=== PATIENT | female | born 1945 | race Caucasian/White ===

== ENCOUNTER 2022-01-14 16:32 | Emergency (ER) | payer MEDICARE, SELFPAY ==
--- NOTE | ~2022-01-14 | XR_ITS ---
EXAMINATION: XR chest 2V Exam Date/Time: 01/14/2022 17:01 CDT HISTORY: MIDSTENAL CP/EPIGASTRIC PAIN, SOB, WEAKNESS X 2 HOURS Comparison: 04/28/2013. RESULT: Lines, tubes, and devices: None. Lungs and pleura: Emphysematous and senescent change. Biapical pleural scarring. Cardiomediastinal silhouette: Stable. Other: No acute osseous or upper abdominal finding. IMPRESSION: No acute cardiopulmonary process. Reviewed, dictated and finalized at location K.
--- NOTE | 2022-01-14 16:34 | ECG_ITS ---
Measurements Intervals [place] Rate: 81 P: 73 DE: 168 QRS: -48 QRSD: 77 T: 1 QT: 349 QTc: 406 Interpretive Statements SINUS RHYTHM ANTEROSEPTAL MYOCARDIAL INFARCTION , OF INDETERMINATE AGE [40+ ms Q WAVE IN V1-V4] MODERATE T-WAVE ABNORMALITY, CONSIDER LATERAL ISCHEMIA [-0.1+ mV T WAVE IN I/aVL/V5/V6] NO PREVIOUS ECG AVAILABLE FOR COMPARISON Electronically Signed On 01-15-2022 17:09:44 CDT by Slade Short M.D.
[2022-01-14 17:19] VITALS: BP 117/67; PULSE 84; RESP 16; TEMP 36.1; O2SAT 98
[2022-01-14 17:43] LABS: Basophils Percent Auto 0.7 % (0.2-1.2); Eosinophils Absolute Auto 0.2 K/mm3 (0-0.3); Eosinophils Percent Auto 3.3 % (0-4.4); Immature Granulocyte Absolute 0.01 K/mm3 (0.00-0.031); Immature Granulocyte Percent A 0.2 % (0-0.5); Lymphocytes Absolute Auto 1.06 K/mm3 (0.9-3.2); Lymphocytes Percent Auto 23.2 % (18.3-44.2); Mean Corpuscular HGB Conc 32.5 g/dl (32-36); Mean Corpuscular Hemoglobin 29.7 pg (26-34); Mean Corpuscular Volume 91.3 fl (80-100); Monocytes Absolute Auto 0.4 K/mm3 (0.1-0.6); Monocytes Percent Auto 9.4 % (2.6-8.5); Neutrophils Absolute Auto 2.9 K/mm3 (1.3-6.7); Neutrophils Percent Auto 63.2 % (45.5-73.1); Platelet Count Result 231 k/mm3 (150-375); Red Blood Count 4.38 M/mm3 (4.2-5.4); Red Cell Distribution Width 13.8 % (11.5-14.5); White Blood Count 4.6 K/mm3 (4.5-10.0)
[2022-01-14 17:54] LABS: Prothrombin Time 12.9 Seconds (11.1-14.7)
[2022-01-14 17:57] LABS: Alanine Aminotransferase 41 U/L (6-35); Albumin Level 4.3 g/dL (3.5-5.1); Alkaline Phosphatase 131 U/L (38-126); Anion Gap 15 mmol/L (8-16); Aspartate Amino Transferase 98 U/L (14-36); Bilirubin,Total 0.2 mg/dL (0.2-1.3); Blood Urea Nitrogen 25 mg/dL (7-17); Calcium 9.2 mg/dL (8.4-10.2); Carbon Dioxide 25 mmol/L (22-30); Chloride 105 mmol/L (98-107); Estimated CRCL calculation 58 ml/min; Estimated Glomerular Filt Rate > 60; Glucose 115 mg/dL (65-110); Lipase 113 U/L (23-300); Potassium 3.7 mmol/L (3.4-5.0); Sodium 145 mmol/L (137-145)
[2022-01-14 18:08] LABS: Troponin I < 0.012 ng/mL (0.000-0.034)
--- NOTE | 2022-01-14 19:11 | PC.NURSE ---
IV removed per Sarina METZ. Pt leaving ED at this time after being Triaged but prior to being seen by provider.
== END 2022-01-14 19:11 | disposition left against medical advice (07) ==
PROVIDERS: Emergency Provider Emergency Medicine; PCP Internal Medicine
DX: R07.9 Chest pain, unspecified (principal)
CPT/HCPCS: 36415; 71046; 80053; 83690; 84484; 85025; 85610; 85730; 93005; 99199

== ENCOUNTER 2024-05-01 21:57 | Observation (INO) | payer MEDICARE, SELFPAY ==
--- NOTE | ~2024-05-01 | XR_ITS ---
HISTORY: injury post fall COMPARISON: None TECHNIQUE: 2 views of the left shoulder were performed FINDINGS: Acute comminuted fracture of the left humeral head is identified. Overlap of the fracture fragments is present. The adjacent left lung is unremarkable. Diffuse bony demineralization is noted. IMPRESSION: Comminuted fracture of the left humeral head, as detailed above without anterior dislocation. Reviewed, dictated and finalized at location A. L SOCIAL WORKER IMPRESSION: Comminuted fracture of the left humeral head, as detailed above without anterio r dislocation.
--- NOTE | ~2024-05-01 | XR_ITS ---
EXAMINATION: XR wrist LT 2V DATE: 05/02/2024 08:09 INDICATION: Left wrist pain. Fall. TECHNIQUE: 2 views of left wrist were obtained. COMPARISON: None. FINDINGS: Alignment is normal. No fracture. There is moderate osteoarthritis of radioscaphoid joint a nd mild osteoarthritis of triscaphe joint and first carpometacarpal joint. IMPRESSION: 1. Polyarticular osteoarthritis. Reviewed, dictated and finalized at location B. IDE SALES MANAGER
--- NOTE | ~2024-05-01 | CT_ITS ---
EXAMINATION: CT brain wo con DATE: 05/02/2024 07:57 INDICATION: Fall. Neck pain. TECHNIQUE: Computed tomography (CT) of the head was performed without intravenous contrast. The mA wa s adjusted according to patient size. Iterative reconstruction technique was employed. The dose-lengt h product was 605.33 mGy-cm. COMPARISON: Head CT 01/03/2011 FINDINGS: There is no intracranial hemorrhage, acute infarction, or abnormal intracranial mass lesion . The ventricles are normal in size. There are likely changes of right ocular lens replacement surger y. There is mild mucosal thickening in the paranasal sinuses. The mastoid air cells are normal. IMPRESSION: 1. Normal brain. Reviewed, dictated and finalized at location B. D DESIGN ENGINEER IMPRESSION: 1. Normal brain.
--- NOTE | ~2024-05-01 | CT_ITS ---
EXAMINATION: CT cervical spine wo con DATE: 05/02/2024 07:57 INDICATION: Neck pain. Fall. TECHNIQUE: Computed tomography (CT) of the cervical spine was performed without intravenous contrast. Automated exposure control and iterative reconstruction technique were employed. The dose-length pro duct was 119.39 mGy-cm. COMPARISON: None FINDINGS: There is kyphosis of cervical spine. Vertebral body heights are normal. There is mildly dec reased disc height at C3-C4 and severely decreased disc height from C4-C5 through C6-C7. The followin g disc levels are specifically discussed: C2-C3: There is no uncovertebral joint osteoarthritis. There is moderate right and mild left facet jeannette int osteoarthritis. There is no neural foraminal stenosis. There is no central canal stenosis. C3-C4: There is mild bilateral uncovertebral joint osteoarthritis. There is severe right facet joint osteoarthritis. There is mild right neural foraminal stenosis. There is no central canal stenosis. C4-C5: There is severe bilateral uncovertebral joint osteoarthritis. There is severe bilateral facet joint osteoarthritis. There is mild bilateral neural foraminal stenosis. There is mild central canal stenosis. C5-C6: There is severe bilateral uncovertebral joint osteoarthritis. There is mild bilateral facet jeannette int osteoarthritis. There is mild bilateral neural foraminal stenosis. There is mild central canal st enosis. C6-C7: There is severe bilateral uncovertebral joint osteoarthritis. There is moderate bilateral face t joint osteoarthritis. There is mild bilateral neural foraminal stenosis. There is mild central davie l stenosis. C7-T1: There is no uncovertebral joint osteoarthritis. There is mild bilateral facet joint osteoarthr itis. There is no neural foraminal stenosis. There is no central canal stenosis. IMPRESSION: 1. No fracture. 2. Severe cervical spondylosis. Reviewed, dictated and finalized at location B. ED RICE BROKER
[2024-05-01 22:05] VITALS: BP 155/80; PULSE 80; RESP 18; TEMP 36.3; O2SAT 100
[2024-05-01] MEDS: MORPHINE SULFATE (*CRX) 4 MG/ML INJ IV PUSH (23:07)
[2024-05-01] MEDS: ONDANSETRON INJ 4 MG/2 ML VIAL IV PUSH (23:07)
[2024-05-01 23:19] VITALS: BP 138/72; PULSE 82; RESP 14; O2SAT 100
--- NOTE | 2024-05-01 23:45 | ED.FALL ---
HPI - Fall General Chief Complaint: Fall Stated Complaint: fall, L shoulder injury Time Seen by Provider: 05/01/24 23:08 History of Present Illness HPI Narrative: Patient is a 78-year-old female who presents to the emergency department this evening status post a ground level fall which occurred at home. Patient states that she tripped over something and fell hitting her left shoulder on the AC unit. Patient states that she did not hit her head and did not lose any consciousness. Since the fall she has not been able to move her left. Denies any numbness and tingling to the left upper extremity. Denies any blood thinner use. No additional symptoms or concerns at this time. Related Data Allergies Allergy/AdvReac Type Severity Reaction Status Date / Time Penicillins Allergy Mild Unknown Verified 05/01/24 21:58 ONIONS, GARLIC, MILK CAUSES Allergy Unknown Unknown Uncoded 05/01/24 21:58 UPSET STOMACH Review of Systems Review of Systems: All systems are reviewed and are negative unless stated otherwise in the HPI. Exam Narrative: General: Alert, awake, afebrile, acute distress secondary to pain. HEENT: PERRL, no rhinorrhea, no post nasal drip, oropharynx clear. Neck: Trachea midline, no JVD, no lymphadenopathy. Cardiovascular: Regular rate and rhythm, no murmurs, rubs or gallops, no peripheral edema. Respiratory: Clear to auscultation bilaterally, no tachypnea, no wheezing, no rhonchi, no rubs, no respiratory distress. Abdomen: Soft, nontender, nondistended, no rebound, no guarding, no peritoneal signs. Musculoskeletal: Left upper extremity held in adduction at the shoulder joint and 90 degree elbow flexion, sling in place, intact radial, ulnar pulses, intact sensation in all nerve distributions including deltoid region. Skin: No rashes or petechia, no signs of infection. Psychiatric: Alert and oriented, normal behavior and judgment for situation. Neurological: Alert and oriented to person, place, and time. Follows all commands. No focal deficits, speech is clear and fluent. Course Vital Signs Vital signs: Vital Signs Temperature 97.4 F L 05/01/24 22:05 Pulse Rate 80 05/01/24 22:05 Respiratory Rate 18 05/01/24 22:05 Blood Pressure 155/80 H 05/01/24 22:05 Pulse Oximetry 100 05/01/24 22:05 Oxygen Delivery Room Air 05/01/24 22:05 Temperature 97.4 F L 05/01/24 22:05 Pulse Rate 82 05/01/24 23:19 Respiratory Rate 14 05/01/24 23:19 Blood Pressure 138/72 05/01/24 23:19 Pulse Oximetry 100 05/01/24 23:19 Oxygen Delivery Room Air 05/01/24 22:05 MDM - Fall MDM Narrative Medical decision making narrative: The patient was evaluated by myself in the emergency department. History is obtained from patient who is an independent historian and physical exam was performed. External medical records were reviewed at this time. IV was established and pertinent tests were ordered. Patient was administered 4 mg of IV Zofran for nausea and 4 mg of IV morphine for pain. Imaging studies obtained included left shoulder x-ray which was independently interpreted by me revealing a comminuted left humeral head fracture, nondisplaced, which is pending final radiology interpretation. Differential diagnosis considerations include fractures, dislocations, musculoskeletal strain. Comorbidities impacting this visit include none. I have evaluated and discussed social determinants of health with the patient that could potentially impact subsequent diagnosis and treatment plans. On repeat assessment of the patient, reevaluation revealed that the patient is doing well and is in no acute distress. Patient symptoms have improved since she arrived to our emergency department. Patient states that she does not feel as though she can go home and that she is having difficulty ambulating and does not believe that she can care for herself at home. Repeat vital signs were all reviewed and noted to be stable. Differential diagnosis and treatment plan were discussed with the patient at bedside. Patient agrees with discussion and after shared medical decision making agrees with admission. All questions were answered to the patient's satisfaction. Case was discussed with the on-call hospitalist Dr. Dennison at 0010 who accepted admission for pain control. Orthopedic consultation was placed at this time with Dr. Frausto. Discharge Plan Discharge Clinical Impression: Fracture of head of humerus Patient Disposition: Still a Patient Condition: Improved Instructions: Arm Fracture in Adults (ED) Additional Instructions: Please follow-up with your orthopedic surgeon you were provided with today, call tomorrow to set up a follow-up appointment to be seen within the next 3-5 days. Take the prescribed nausea/pain medication as needed. Return to ED if any new worsening symptoms develop. Patient Language: Comoran Prescriptions: New hydrocodone-acetaminophen 5-325 mg tablet 1 tablet PO Q8H PRN (Reason: pain) Qty: 14 0RF ondansetron 4 mg tablet,disintegrating 4 mg PO Q8H PRN (Reason: nausea and vomiting) Qty: 14 0RF Follow-up/Referrals: Rian Verdin MD [Physician] - 3 Days UNKNOWN,DOCTOR [Primary Care Provider] - Time of Disposition: 23:44
[2024-05-01] MEDS: MORPHINE SULFATE (*CRX) 2 MG/ML INJ IV PUSH (23:59)
[2024-05-02] MEDS: ONDANSETRON INJ 4 MG/2 ML VIAL IV PUSH
--- NOTE | 2024-05-02 00:04 | PC.NURSE ---
This Rn went to discharge pt and pt was laying in stretcher tearful, shaking. Pt stated she did not believe she could safely go home with the amount of pain she is in. Provider made aware.
[2024-05-02 00:28] VITALS: BP 147/81; PULSE 74; RESP 15; O2SAT 100
[2024-05-02 00:43] VITALS: BP 147/81; PULSE 78; RESP 15; O2SAT 99
--- NOTE | 2024-05-02 01:05 | ADMGEN ---
This patient, Lesly Kincaid, was admitted to Medical Room 348-01. Patient/family oriented to hospital policies and general routines including ID bracelet, bed and alarms, visiting hours, pain management, procedures, bathroom and other care routines, personal items, smoking policy, room service/diet, and visiting hours. Information on how to activate the Rapid Response Team has been discussed. Patient/Family are encouraged to report perceived risks to care and to ask questions if they do not understand what they are told or what they should do.
[2024-05-02] MEDS: MORPHINE SULFATE (*CRX) 4 MG/ML INJ IV PUSH (01:43)
[2024-05-02 02:01] VITALS: BMI 24.4
[2024-05-02] MEDS: ACETAMINOPHEN 325 MG TABLET 650 MG PO (02:12)
[2024-05-02 02:14] LABS: Hematocrit 40.1 % (37.0-47.0); Hemoglobin 13.3 g/dL (12.0-15.0); Mean Corpuscular HGB Conc 33.2 g/dl (32-36); Mean Corpuscular Hemoglobin 30.4 pg (26-34); Mean Corpuscular Volume 91.8 fl (80-100); Mean Platelet Volume 9.5 fl (7.4-10.4); Platelet Count Result 202 k/mm3 (150-375); Red Blood Count 4.37 M/mm3 (4.2-5.4); Red Cell Distribution Width 13.8 % (11.5-14.5)
[2024-05-02 02:37] LABS: Anion Gap 10 mmol/L (4-12); Blood Urea Nitrogen 28 mg/dL (7-17); Calcium 8.6 mg/dL (8.4-10.2); Carbon Dioxide 20 mmol/L (22-30); Chloride 108 mmol/L (98-107); Estimated CRCL calculation 59 ml/min; Estimated Glomerular Filt Rate > 60; Glucose 121 mg/dL (65-110); Sodium 138 mmol/L (137-145)
--- NOTE | 2024-05-02 02:49 | P.HP_ITS ---
H&P: HPI History of Present Illness Date/Time: 05/02/24 02:49 Chief Complaint: Is left shoulder pain he after falling Narrative: 78-year-old female with a past medical history of hyperlipidemia, prior hysterectomy and prior arm and wrist fractures who presented to the ER after tripping and falling on the steps and landing on her left shoulder with resultant severe pain. The patient reports that she was taking the step down from her landing into heard in when she managed to get her feet tangled in she went flying. She stated that she allergic forward and landed with her shoulder into the heating unit. She did not hit her head or lose consciousness. She immediately had severe intractable pain. She did manage to get up and her family managed to bring her into the ER by private vehicle. She reports that she is usually stable on her feet. She works out by a doing laps around her house went in the cold weather and by doing yd work and exercising outside when the weather is appropriate. She does have a history of prior wrist and arm fractures more than 10 years ago. She denies any headache currently. She reports that the pain in her shoulders a 10 on 10 intensity with any movement. She reports pain up into the left side of her neck. She denies any point tenderness or reproducible tenderness to palpation of the neck or clavicle. She does report some left wrist pain and states that she has broken that wrist before. She does have some mild swelling to the left wrist. She does not want to move the fingers of her left hand due to discomfort in her wrist. The medications that are listed under the patient's home medications are medications that the ER provider was planning on discharging the patient on. However patient was unable to tolerate her degree of pain and subsequently was admitted the hospital as observation status. The patient does not take any home medications whatsoever. Review of Systems 2 Review of Systems: 10 systems were reviewed with pertinent positives and negatives per HPI. Except as documented in the HPI, all other systems were reviewed and are negative. [facility] Past Medical History Medical History (Updated 05/02/24 @ 07:16 by Jacquelyn Dennison DO) Hyperlipidemia Surgical History Surgical History (Updated 05/02/24 @ 07:04 by Jacquelyn Dennison DO) History of toe surgery Status post lateral meniscus repair Status post right cataract extraction Status post cholecystectomy History of repair of anterior cruciate ligament of right knee History of repair of anterior cruciate ligament of left knee History of total abdominal hysterectomy and bilateral salpingo-oophorectomy At age 44 due to dysfunctional uterine bleeding Family History Family History Grandparent Acute myocardial infarction Father History of blood clots Congestive heart failure Hypertension Mother Hypertension Social History Social History (Updated 05/02/24 @ 07:06 by Jacquelyn Dennison DO) Social History: The patient has been for 61 years. They had 3 biologic children and 5 adopted children. 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 She still works part-time at the [employer]. She is active and exercises regularly. She is a lifelong nonsmoker and does not drink alcohol. Code status: DNR/DNI (per patient request) Surrogate decision maker: Smoking status: Never smoker Alcohol intake: never Substance use: never Do You Feel Safe in your Home?: Yes Lack of Transportation: No Lack of Food: Never True Current Housing: I Have Housing Concerned About Future Housing: No Difficulty Paying Gas/Electric Bills: No Difficulty Paying for Meds: No Currently Unemployed: No Education: High School Diploma/GED Difficulty w/ Childcare or Family Care: No Spiritual care concerns: No Meds Home Medications and Allergies Home Medications ?Medication ?Instructions ?Recorded ?Confirmed ?Type hydrocodone 5 mg-acetaminophen 325 1 tablet PO Q8H PRN pain #14 tabs 05/01/24 Rx mg tablet ondansetron 4 mg disintegrating 4 mg PO Q8H PRN nausea and 05/01/24 Rx tablet vomiting #14 tabs Allergies Allergy/AdvReac Type Severity Reaction Status Date / Time Penicillins Allergy Mild Unknown Verified 05/01/24 21:58 ONIONS, GARLIC, MILK CAUSES Allergy Unknown Unknown Uncoded 05/01/24 21:58 UPSET STOMACH Vital Signs Vital Signs - 24 hr 05/01/24 22:05 05/01/24 23:19 05/02/24 00:28 Temperature 97.4 F L Pulse Rate 80 82 74 Respiratory Rate 18 14 15 Blood Pressure 155/80 H 138/72 147/81 H Pulse Oximetry 100 100 100 Oxygen Delivery Room Air 05/02/24 00:43 05/02/24 01:19 Temperature Pulse Rate 78 Respiratory Rate 15 Blood Pressure 147/81 H Pulse Oximetry 99 Oxygen Delivery Room Air Exam 2 Narrative: Weight 62.5 kg BMI 24.4 Const: Other: The well-developed, well-nourished, appears younger than stated age, appears to be acutely uncomfortable and in pain laying on her right side HENMT: Other: Patient has area of swelling to the posterior neck base of the head, mucous membranes are tacky, no oral pharyngeal erythema, good dentition Eyes: Other: Pupils are equal and reactive, evidence of right lens replacement noted, no scleral icterus, no conjunctival pallor Neck: Other: Patient has muscle spasm of the left posterior cervical musculature, no reproducible tenderness to palpation, no JVD, no lymphadenopathy Resp: Other: Clear to auscultation bilaterally, no increased work of breathing Cardio: Other: Regular rate, regular rhythm, 2+ bilateral radial and pedal pulses GI: Other: Soft, nontender, nondistended, positive bowel sounds Skin: Other: Mildly diaphoretic, non jaundice, no pallor, no large areas of bruising despite traumatic fall Neuro: Other: Alert orient x4, speech is clear, no facial asymmetry, no localizing neurologic deficits noted Extrem: Other: The right upper extremity is in a sling, her fingers are slightly swollen, she can move her fingers and does not have any pain in her hand or fist she has intact sensation but has severe pain in her shoulder with any movement in is extremely hesitant to move her wrist or hand as she does not want to cause any more pain in her shoulder. She also reports some pain in her left wrist Psych: Other: Appropriate mood and affect, pleasant and cooperative, judgment and insight intact H&P: Results Labs Labs: Laboratory Tests 05/02/24 02:07 05/02/24 02:07 05/02/24 02:07 WBC 9.0 RBC 4.37 Hgb 13.3 Hct 40.1 MCV 91.8 MCH 30.4 MCHC 33.2 RDW 13.8 Plt Count 202 MPV 9.5 Sodium 138 Potassium 4.0 Chloride 108 H Carbon Dioxide 20 L Anion Gap 10 BUN 28 H Creatinine 0.54 L Estim Creat Clear Calc 59 Estimated GFR > 60 Glucose 121 H Calcium 8.6 Assessment and Plan Assessment and plan (1) Fracture of head of humerus: Qualifiers: Encounter type: initial encounter Fracture type: closed Laterality: l eft Qualified Code(s): S42.292A - Other displaced fracture of upper end of left humerus, initial encounter for closed fracture Code(s): S42.293A - Other displaced fracture of upper end of unspecified humerus, initial encounter for closed fracture Status: Acute (2) Neck pain: Code(s): M54.2 - Cervicalgia Status: Acute (3) Left wrist pain: Code(s): M25.532 - Pain in left wrist Status: Acute Plan The patient has comminuted fracture of the left humeral head. She has evidence of bony demineralization suggesting underlying osteoporosis. She reports severe pain but is reluctant to take any pain medications. She has taken several doses of morphine but does not want to take any oral pain medications because they make her feel funny. She reported that when she had a prior fractures she did not tolerate the side effects from her pain medications that she does not know if it was hydrocodone oxycodone or another pain medication. However pain is still unrelieved despite Tylenol and the morphine. She was briefly able to sleep after receiving morphine. Have discussed in detail with the patient that she is going to have to try some oral pain medications and will likely need increased pain medications in addition to Tylenol and or ibuprofen. She verbalized understanding of this. At this time will place patient on Toradol 30 mg IV scheduled q.6 hours for 24 hours and will continue Tylenol for pain 1-3 and will add tramadol for pain 4-10. Will provide morphine as needed for breakthrough pain. Orthopedic surgery has been consulted. Patient will remain in his sling. The patient is reporting associated left wrist pain. Will check wrist x-ray. The patient returns reporting pain up into her left lateral neck in given mechanism of injury I feel more comfortable of ruling out both head and neck injury. Will order stat CT of the brain and cervical spine. Nursing staff reports that the patient has already gotten up and ambulated to the bathroom after arriving to the medical floor. They report that she is steady on her feet. Quality VTE Prophylaxis VTE prophylaxis: mechanical ordered (SCDs) Hospitalist MIPS Advance Care Plan I have confirmed that the patient's Advanced Care Plan is present, code status is documented, or surrogate decision maker is listed in patient medical record.: Yes Medication Reconciliation I have utilized all available resources to obtain, update and review the patients current medications (includes all prescriptions, OTC, herbals, cannabis, and nutritional supplements).: Yes
[2024-05-02 06:00] VITALS: BP 104/56; PULSE 85; RESP 18; TEMP 36.4; O2SAT 96
--- NOTE | 2024-05-02 06:13 | PC.NURSE ---
Unable to reconcile home medications due to ER physician's charting. HS hospitalist Hopen aware at this time. Patient does not take any home medications.
[2024-05-02] MEDS: KETOROLAC 30 MG/ML VIAL (*BKC) IV PUSH ×3 (07:35→18:36)
--- NOTE | 2024-05-02 07:51 | PC.NURSE ---
Patient off of unit to CT scan
--- NOTE | 2024-05-02 09:44 | P.CONOP_ITS ---
Assessment and Plan Assessment and plan (1) Fracture of head of humerus: Qualifiers: Encounter type: initial encounter Fracture type: closed Laterality: l eft Qualified Code(s): S42.292A - Other displaced fracture of upper end of left humerus, initial encounter for closed fracture Code(s): S42.293A - Other displaced fracture of upper end of unspecified humerus, initial encounter for closed fracture Status: Acute Assessment and Plan: Radiographs of the left shoulder reveal a comminuted fracture of the humeral head. The fracture type and injury as well as radiographs discussed with the patient and family. Operative and nonoperative treatment options reviewed. Recommended nonoperative treatment at this time. Risk of nonunion, malunion or late displacement discussed. Stiffness, pain and possible dysfunction of the joint discussed. Fracture precautions and activity restrictions reviewed. The patient verbalizes understanding. Patient to maintain sling to the LUQ. NWB. Pain control. Ice. PT/OT for mobilization. Pending d/c plans, will follow up for repeat radiographs to continue to monitor alignment. (2) Knee pain, left: Code(s): M25.562 - Pain in left knee Status: Acute Assessment and Plan: Patient with complaints of left knee pain/tenderness to touch. Mild tenderness with palpation. No joint effusion. AROM/PROM without pain. Denies severe pain with ambulation. Hx of meniscal injury. Continue to monitor. If worsening, would recommend left knee radiographs. (3) Left wrist pain: Code(s): M25.532 - Pain in left wrist Status: Acute Assessment and Plan: Radiographs of the left wrist negative for fracture. 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 Plan Reviewed history, exam, radiographs and current labs with attending MD and covering surgeon, Dr. Verdin, who agrees with current plan as indicated above. No further recommendations from Dr. Verdin at this time. History of Present Illness HPI Consult date: 05/02/24 Consult reason: fracture Chief complaint: Left humeral head fracture, Pain control Narrative: 78 year old female admitted s/p fall at home after tripping over a backpack. Per patient/family, she fell onto the left side and reported severe pain which prompted her arrival to the ED. Radiographs of the left shoulder in the ER reveal a comminuted fracture of the left humeral head. Patient also reported left wrist pain. Radiographs of the left wrist reveal moderate OA. Per patient, she had previous injuries to the left wrist/arm. According to the historical link, this injury occurred in 2003 and appears to have been the right and left wrist. Images currently unavailable for reference. Orthopedic consult requested by ER physician. Patient admitted for uncontrolled pain. Review of Systems 2 Review of Systems: All systems reviewed & are unremarkable except as noted in HPI and below PMFSH Past Medical History Medical History Hyperlipidemia Surgical History Surgical History History of toe surgery Status post lateral meniscus repair Status post right cataract extraction Status post cholecystectomy History of repair of anterior cruciate ligament of right knee History of repair of anterior cruciate ligament of left knee History of total abdominal hysterectomy and bilateral salpingo-oophorectomy At age 44 due to dysfunctional uterine bleeding Family History Family History Grandparent Acute myocardial infarction Father History of blood clots Congestive heart failure Hypertension Mother Hypertension Social History Social History Social History: The patient has been for 61 years. They had 3 biologic children and 5 adopted children. 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 She is active and exercises regularly. She is a lifelong nonsmoker and does not drink alcohol. Code status: DNR/DNI (per patient request) Surrogate decision maker: Smoking status: Never smoker Alcohol intake: never Substance use: never Do You Feel Safe in your Home?: Yes Lack of Transportation: No Lack of Food: Never True Current Housing: I Have Housing Concerned About Future Housing: No Difficulty Paying Gas/Electric Bills: No Difficulty Paying for Meds: No Currently Unemployed: No Education: High School Diploma/GED Difficulty w/ Childcare or Family Care: No Spiritual care concerns: No Meds Home Medications and Allergies Home Medications ?Medication ?Instructions ?Recorded ?Confirmed ?Type hydrocodone 5 mg-acetaminophen 325 1 tablet PO Q8H PRN pain #14 tabs 05/01/24 Rx mg tablet ondansetron 4 mg disintegrating 4 mg PO Q8H PRN nausea and 05/01/24 Rx tablet vomiting #14 tabs Allergies Allergy/AdvReac Type Severity Reaction Status Date / Time Penicillins Allergy Mild Unknown Verified 05/01/24 21:58 ONIONS, GARLIC, MILK CAUSES Allergy Unknown Unknown Uncoded 05/01/24 21:58 UPSET STOMACH Vital Signs Vital Signs - 24 hr 05/01/24 22:05 05/01/24 23:19 05/02/24 00:28 Temperature 36.3 C L Pulse Rate 80 82 74 Respiratory Rate 18 14 15 Blood Pressure 155/80 H 138/72 147/81 H Pulse Oximetry 100 100 100 Oxygen Delivery Room Air 05/02/24 00:43 05/02/24 01:19 05/02/24 06:00 Temperature 36.4 C L Pulse Rate 78 85 Respiratory Rate 15 18 Blood Pressure 147/81 H 104/56 L Pulse Oximetry 99 96 Oxygen Delivery Room Air 05/02/24 08:00 Temperature Pulse Rate Respiratory Rate Blood Pressure Pulse Oximetry Oxygen Delivery Room Air Exam 2 Const: General: comfortable and no acute distress HENMT: Mouth: Yes moist mucous membranes Eyes: General: appearance normal, both eyes and all related structures Neck: Neck: supple and no JVD Resp: Effort & Inspection: normal respiratory effort Cardio: Rate: regular rate Rhythm: regular rhythm GI: Inspection: non-distended GI Palp: Yes Soft to palpation and No Tenderness to palpation present (GI) Neuro: General: gait normal Cognition (Neuro): normal cognition Speech: normal speech Extrem: Left upper extremity: shoulder/upper arm abnormal to inspection, tenderness of the clavicle, of the proximal humerus and of the mid-shaft humerus, swelling of the proximal humerus, abnormal ROM held in an abnormal fashion in ADduction and ecchymosis; no crepitus and no foreign bodies, elbow/forearm normal to inspection, wrist tenderness (diffuse ) and normal ROM; no swelling and no unusual warmth and hand normal to inspection, neuromotor exam abnormal, neurosensory exam normal and vascular exam radial pulse present and normal capillary refill Left lower extremity: knee (tender to palpation only ) Details: tenderness Location: of the patella, normal ROM and Grisel's Test Details: negative medially and laterally Psych: Mental Status: mental status grossly normal Affect: normal affect Results Labs 05/02/24 02:07 05/02/24 02:07 Labs: Abnormal lab results 05/02/24 Range/Units 02:07 Chloride 108 H (98-107) mmol/L Carbon Dioxide 20 L (22-30) mmol/L BUN 28 H (7-17) mg/dL Creatinine 0.54 L (0.7-1.0) mg/dL Glucose 121 H (65-110) mg/dL H & H 05/02/24 Range/Units 02:07 Hgb 13.3 (12.0-15.0) g/dL Hct 40.1 (37.0-47.0) % All other labs normal. Fracture/Casting/Strapping Pre Procedure Consent was obtained, Procedures/risks were explained, Questions were answered, Correct patient identified and Correct side and site confirmed Episode of Care New episode (left shoulder ) Fracture Care Clavicle/scapula/humerus/shoulder Clavicle, Scapula, Humerus, Shoulder: CLOSED TX GREATER HUMERAL Application Exam of Affected Area: Color: Normal, Temp: Normal, Pulse: Normal, Blanching: Normal, Capillary Refill: Normal and Sensory Exam: Normal Swelling: Yes and Tenderness: Yes Skin Patient Tolerated Procedure Well: Yes Post Procedure Patient tolerated the procedure well?: Tolerated procedure well
[2024-05-02 16:00] VITALS: BP 110/58; PULSE 84; RESP 16; TEMP 36.6; O2SAT 97
[2024-05-02 19:26] VITALS: O2SAT 97
[2024-05-02 22:29] VITALS: BP 123/64; PULSE 84; RESP 18; TEMP 36.2; O2SAT 97
[2024-05-03] VITALS: BP 117/60; PULSE 71; RESP 20; TEMP 36.3; O2SAT 98
[2024-05-03] MEDS: KETOROLAC 30 MG/ML VIAL (*BKC) IV PUSH (00:36)
[2024-05-03 06:00] VITALS: BP 112/58; PULSE 70; RESP 20; TEMP 36.1; O2SAT 99
[2024-05-03 08:00] VITALS: BP 128/66; PULSE 73; RESP 18; TEMP 35.7; O2SAT 96
[2024-05-03] MEDS: ACETAMINOPHEN 325 MG TABLET 650 MG PO ×3 (08:31→18:53)
[2024-05-03 09:26] LABS: Troponin I < 0.012 ng/mL (0.000-0.034)
[2024-05-03 12:00] VITALS: BP 116/63; PULSE 73; RESP 18; TEMP 36.1; O2SAT 97
[2024-05-03 16:00] VITALS: BP 102/56; PULSE 67; RESP 18; TEMP 35.7; O2SAT 95
[2024-05-03] MEDS: IBUPROFEN 600 MG TABLET PO (17:31)
[2024-05-03] MEDS: BISACODYL 5 MG TABLET EC PO (17:31)
[2024-05-03] MEDS: polyethylene glycoL 3350 17 GM POWD.PACK PO (17:32)
--- NOTE | 2024-05-03 18:16 | PM.IMPN ---
Progress Note: A&P Assessment and Plan (1) Fracture of head of humerus: Qualifiers: Encounter type: initial encounter Fracture type: closed Laterality: left Qualified Code(s): S42.292A - Other displaced fracture of upper end of left humerus, initial encounter for closed fracture Code(s): S42.293A - Other displaced fracture of upper end of unspecified humerus, initial encounter for closed fracture Status: Acute Assessment and Plan: - Left Shoulder X-Ray: Comminuted fracture of the left humeral head, as detailed above without anterior dislocation. - Ortho consulted and conservative mgt recommended for now. - Pain meds PRN. - PT/OT eval and treatment. - Repeat imaging per ortho. (2) Neck pain: Code(s): M54.2 - Cervicalgia Status: Acute Assessment and Plan: - Possibly related to trauma caused by fall. - CT head negative for acute. - CT C-Spine negative for acute. - Supportive care for now. (3) Left wrist pain: Code(s): M25.532 - Pain in left wrist Status: Acute Assessment and Plan: - X-Ray left Wrist: IMPRESSION: 1. Polyarticular osteoarthritis. - No acute fractures noted. - Supportive care. Time Spent With Patient Time with patient: 25 - 35 minutes Subjective Date/time seen: 05/03/24 13:16 Patient states she feel ok and did well with PT/OT eval and treatment, walking with them in the hallway. States wants to avoid narcotics as she doesn't like how they make him feel. Interval history: Patient seated bedside surrounded by family and looks to be in no acute distress. Reports mod-severe L. Shoulder pain with movement. Review of Systems Review of Systems: All systems reviewed & are unremarkable except as noted in HPI and below Exam Narrative: General: Fair appearing, no acute distress. HEENT: Atraumatic, PERRL, EOMI, moist mucosa. NECK: Supple. LUNGS: Clear bilaterally. Heart: RRR, no murmurs. Abdomen: Soft, non-tender, non-distended, +VE BS X4 quads. Skin: Warm and dry, no lesions noted. Neuro: Well oriented. CN II-XII grossly intact. Psych: Pleasant and co-operative. Objective Data Vital Signs Vital Signs: Vital Signs - 24 hr 05/02/24 19:26 05/02/24 20:00 05/02/24 22:29 Temperature 97.1 F L Pulse Rate 84 Respiratory Rate 18 Blood Pressure 123/64 Pulse Oximetry 97 97 Oxygen Delivery Room Air Room Air Fraction of Inspired Oxygen 21 05/03/24 00:00 05/03/24 06:00 05/03/24 08:00 Temperature 97.4 F L 97.0 F L 96.3 F L Pulse Rate 71 70 73 Respiratory Rate 20 20 18 Blood Pressure 117/60 112/58 L 128/66 Pulse Oximetry 98 99 96 Oxygen Delivery Fraction of Inspired Oxygen 05/03/24 08:35 05/03/24 11:03 05/03/24 12:00 Temperature 96.9 F L Pulse Rate 73 Respiratory Rate 18 Blood Pressure 116/63 Pulse Oximetry 97 Oxygen Delivery Room Air Room Air Fraction of Inspired Oxygen 05/03/24 16:00 Temperature 96.2 F L Pulse Rate 67 Respiratory Rate 18 Blood Pressure 102/56 L Pulse Oximetry 95 Oxygen Delivery Fraction of Inspired Oxygen Intake/Output Intake/Output: Intake & Output 04/30/24 05/01/24 05/02/24 05/03/24 23:59 23:59 23:59 23:59 Intake Total 780 540 Output Total 800 Balance 780 -260 Meds/Results Medications: Active Medications Generic Name Dose Route Start Last Admin Trade Name Freq PRN Reason Stop Dose Admin Acetaminophen 650 mg 05/02/24 01:54 05/03/24 13:06 Acetaminophen 325 Mg Tablet PO 650 mg Q4H PRN Administration Mild Pain (1-3) Or Fever Bisacodyl 5 mg 05/03/24 17:15 05/03/24 17:31 Bisacodyl 5 Mg Tablet Ec PO 5 mg QAM NEE Administration Ibuprofen 600 mg 05/03/24 17:12 05/03/24 17:31 Ibuprofen 600 Mg Tablet PO 600 mg Q6H PRN Administration Pain Morphine Sulfate 2 mg 05/02/24 01:55 Morphine Sulfate (*Crx) 4 Mg/Ml Inj IV PUSH Q4H PRN Breakthrough Pain Polyethylene Glycol 17 gm 05/03/24 17:15 05/03/24 17:32 Polyethylene Glycol 3350 17 Gm Powd.Pack PO 17 gm QAM ENE Administration Tramadol HCl 25 mg 05/02/24 06:50 Tramadol Hcl (*Crx) 25 Mg Tablet PO Q4H PRN Pain Rated 4-10 Radiology Results: ITS Impressions Shoulder X-Ray 05/01/24 22:32 IMPRESSION: Comminuted fracture of the left humeral head, as detailed above without anterior dislocation. Head CT 05/02/24 07:57 IMPRESSION: 1. Normal brain. Cervical Spine CT 05/02/24 07:59 IMPRESSION: 1. No fracture. 2. Severe cervical spondylosis. Wrist X-Ray 05/02/24 08:09 IMPRESSION: 1. Polyarticular osteoarthritis. Labs Labs: Laboratory Results - last 24 hr 05/03/24 08:52 Troponin I < 0.012 Quality VTE Prophylaxis VTE prophylaxis: mechanical ordered (SCDs) Hospitalist MIPS Advance Care Plan I have confirmed that the patient's Advanced Care Plan is present, code status is documented, or surrogate decision maker is listed in patient medical record.: Yes Medication Reconciliation I have utilized all available resources to obtain, update and review the patients current medications (includes all prescriptions, OTC, herbals, cannabis, and nutritional supplements).: Yes
[2024-05-03 20:00] VITALS: BP 113/62; PULSE 67; RESP 18; TEMP 36.9; O2SAT 96
[2024-05-04] MEDS: IBUPROFEN 600 MG TABLET PO (02:49)
[2024-05-04 04:31] VITALS: BP 119/69; PULSE 67; RESP 16; TEMP 36.7; O2SAT 97
[2024-05-04] MEDS: traMADol HCL (*CRX) 25 MG TABLET PO ×2 (07:25→11:25)
[2024-05-04] MEDS: polyethylene glycoL 3350 17 GM POWD.PACK PO (08:31)
[2024-05-04] MEDS: BISACODYL 5 MG TABLET EC PO (08:31)
--- NOTE | 2024-05-04 09:18 | PM.PNORT ---
Progress Note: A&P Assessment and Plan (1) Fracture of head of humerus: Qualifiers: Encounter type: initial encounter Fracture type: closed Laterality: left Qualified Code(s): S42.292A - Other displaced fracture of upper end of left humerus, initial encounter for closed fracture Code(s): S42.293A - Other displaced fracture of upper end of unspecified humerus, initial encounter for closed fracture Status: Acute Assessment and Plan: Radiographs of the left shoulder reveal a comminuted fracture of the humeral head. The fracture type and injury as well as radiographs discussed with the patient and family. Operative and nonoperative treatment options reviewed. Recommended nonoperative treatment at this time. Risk of nonunion, malunion or late displacement discussed. Stiffness, pain and possible dysfunction of the joint discussed. Fracture precautions and activity restrictions reviewed. The patient verbalizes understanding. Patient to maintain sling to the LUQ. NWB. Pain control. Ice. PT/OT. Plan to d/c home for self care with pain control. DVT prophylaxis. Follow up in 1 week for repeat radiographs to check alignment. Will reevaluate potential surgical needs at that time. (2) Knee pain, left: Code(s): M25.562 - Pain in left knee Status: Acute Assessment and Plan: Resolved. (3) Left wrist pain: Code(s): M25.532 - Pain in left wrist Status: Acute Assessment and Plan: Radiographs of the left wrist negative for fracture. 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 Plan Reviewed history, exam, radiographs and current labs with attending MD and covering surgeon, Dr. Verdin, who agrees with current plan as indicated above. No further recommendations from Dr. Verdin at this time. Subjective Subjective Date/Time Seen: 05/04/24 09:18 Interval history: Left shoulder with mild improvement in pain. Tolerating sling well. Hopeful for d/c home. No longer experiencing left knee pain. Review of Systems Review of Systems: All systems reviewed & are unremarkable except as noted in HPI and below Exam Const: General: comfortable and no acute distress HENMT: Mouth: Yes moist mucous membranes Eyes: General: appearance normal, both eyes and all related structures Neck: Neck: supple and no JVD Resp: Effort & Inspection: normal respiratory effort Cardio: Rate: regular rate Rhythm: regular rhythm GI: Inspection: non-distended GI Palp: Yes Soft to palpation and No Tenderness to palpation present (GI) Neuro: General: gait normal Cognition (Neuro): normal cognition Speech: normal speech Extrem: Left upper extremity: shoulder/upper arm abnormal to inspection, tenderness of the clavicle, of the proximal humerus and of the mid-shaft humerus, swelling of the proximal humerus, abnormal ROM held in an abnormal fashion in ADduction and ecchymosis; no crepitus and no foreign bodies, elbow/forearm normal to inspection, wrist tenderness (diffuse ) and normal ROM; no swelling and no unusual warmth and hand normal to inspection, neuromotor exam abnormal, neurosensory exam normal and vascular exam radial pulse present and normal capillary refill Left lower extremity: knee (tender to palpation only ) Details: tenderness Location: of the patella, normal ROM and Grisel's Test Details: negative medially and laterally Psych: Mental Status: mental status grossly normal Affect: normal affect Objective Data Vital Signs Vital Signs: Vital Signs - 24 hr 05/03/24 11:03 05/03/24 12:00 05/03/24 16:00 Temperature 36.1 C L 35.7 C L Pulse Rate 73 67 Respiratory Rate 18 18 Blood Pressure 116/63 102/56 L Pulse Oximetry 97 95 Oxygen Delivery Room Air 05/03/24 20:00 05/03/24 20:00 05/04/24 04:31 Temperature 36.9 C 36.7 C Pulse Rate 67 67 Respiratory Rate 18 16 Blood Pressure 113/62 119/69 Pulse Oximetry 96 97 Oxygen Delivery Room Air Intake/Output Intake/Output: Intake & Output 05/01/24 05/02/24 05/03/24 05/04/24 23:59 23:59 23:59 23:59 Intake Total 780 1230 100 Output Total 800 Balance 780 430 100 Meds/Results Medications: Active Medications Generic Name Dose Route Start Last Admin Trade Name Freq PRN Reason Stop Dose Admin Acetaminophen 650 mg 05/02/24 01:54 05/03/24 18:53 Acetaminophen 325 Mg Tablet PO 650 mg Q4H PRN Administration Mild Pain (1-3) Or Fever Bisacodyl 5 mg 05/03/24 17:15 05/04/24 08:31 Bisacodyl 5 Mg Tablet Ec PO 5 mg QAM ENE Administration Ibuprofen 600 mg 05/03/24 17:12 05/04/24 02:49 Ibuprofen 600 Mg Tablet PO 600 mg Q6H PRN Administration Pain Morphine Sulfate 2 mg 05/02/24 01:55 Morphine Sulfate (*Crx) 4 Mg/Ml Inj IV PUSH Q4H PRN Breakthrough Pain Polyethylene Glycol 17 gm 05/03/24 17:15 05/04/24 08:31 Polyethylene Glycol 3350 17 Gm Powd.Pack PO 17 gm QAM ENE Administration Tramadol HCl 25 mg 05/02/24 06:50 05/04/24 07:25 Tramadol Hcl (*Crx) 25 Mg Tablet PO 25 mg Q4H PRN Administration Pain Rated 4-10 Radiology Results: ITS Impressions Shoulder X-Ray 05/01/24 22:32 IMPRESSION: Comminuted fracture of the left humeral head, as detailed above without anterior dislocation. Head CT 05/02/24 07:57 IMPRESSION: 1. Normal brain. Cervical Spine CT 05/02/24 07:59 IMPRESSION: 1. No fracture. 2. Severe cervical spondylosis. Wrist X-Ray 05/02/24 08:09 IMPRESSION: 1. Polyarticular osteoarthritis. Labs Labs: Laboratory Results - last 24 hr 05/03/24 08:52 Troponin I < 0.012
--- NOTE | 2024-05-04 13:24 | P.DS_ITS ---
DS: Admitting Diagnosis Discharge Date 05/04/24 Admitting Diagnosis Comminuted fracture, Left humerus DS: Discharge Diagnosis Discharge Diagnosis (1) Fracture of head of humerus: Qualifiers: Encounter type: initial encounter Fracture type: closed Laterality: left Qualified Code(s): S42.292A - Other displaced fracture of upper end of left humerus, initial encounter for closed fracture Code(s): S42.293A - Other displaced fracture of upper end of unspecified humerus, initial encounter for closed fracture Status: Acute Assessment and Plan: - Acute (2) Neck pain: Code(s): M54.2 - Cervicalgia Status: Acute Assessment and Plan: - Acute. (3) Left wrist pain: Code(s): M25.532 - Pain in left wrist Status: Acute Assessment and Plan: - Acute. Plan Discharge Home. DS: Summary Hospital Course Reason for hospitalization: Acute Comminuted fracture, Left humerus. Hospital Course: Patient presented to the ER after a fall episode at home where she tripped on a purse that was on the floor with the lights off. Patient denied any head injury, LOC, bleeding or taking blood thinners. She had severe pain to her left shoulder and X-Ray done showed an acute comminuted fracture of the left humeral head. Patient also reported some neck and left wrist pain, with CT head being negative for acute, CT C-Spine negative for acute, and X-Ray left wrist also negative for acute. Patient has been seen by the Orthopedic surgeon and after treatment options discussions, conservative mgt was agreed on by pt and the surgeon. Patient has been kept comfortable with pain and nausea medications, stating she feels much better now and is ready for discharge home. She has been working with PT and OT, tolerating well, and has been cleared for safe discharge home. Patient will follow-up with with Orthopedic surgeon outpatient for further imaging and management. Patient is medically stable for discharge with no acute distress noted or reported prior to discharge. Status at Discharge Functional status at discharge: independent ambulation Overall status at discharge: patient is progressing back to baseline Time Spent with Patient Time attestation: Total time spent providing and/or coordinating discharge services: Time spent: Greater than 30 minutes Exam Narrative: General: Fair appearing, no acute distress. HEENT: Atraumatic, PERRL, EOMI, moist mucosa. NECK: Supple. LUNGS: Clear bilaterally. Heart: RRR, no murmurs. Abdomen: Soft, non-tender, non-distended, +VE BS X4 quads. Skin: Warm and dry, with no lesions noted. Neuro: Well oriented. CN II-XII grossly intact. Psych: Pleasant and co-operative. Discharge Plan Discharge Attending physician on discharge: Ronald Bah Consulting providers: Rian Verdin Discharging Clinician: Shawn Bonilla Anticipated Discharge Date/Time: 05/04/24 13:45 Patient Disposition: Home, Self-Care Activity: may shower, no driving and follow weight bearing status Diet: as tolerated Wound Care Instructions: follow printed instructions Discharge Instructions: Orthopedic Recommendations Dr. Rian Verdin [phone] * Sling/shoulder immobilizer left arm. * Okay for gentle range of motion of the left elbow, wrist, cloth measurer machine strength * Pain control * Ice * Follow up in 1 week for repeat radiographs * Aspirin 81mg PO daily for DVT prophylaxis. Patient Instructions: Antibiotic Form Patient Language: Turkmen Stand Alone Forms: General Discharge Information Follow-up/Referrals: Rian Verdin MD [Physician] - 05/11/24 10:45 am Discharge Medications: New ondansetron 4 mg tablet,disintegrating 4 mg PO Q8H PRN (Reason: nausea and vomiting) Qty: 14 0RF ibuprofen 600 mg Tablet 600 mg PO Q6H PRN (Reason: Pain) Qty: 30 0RF tramadol 25 mg tablet 25 mg PO Q6H PRN (Reason: Pain Rated 4-10) Qty: 20 0RF aspirin 81 mg tablet,delayed release (DR/EC) 81 mg PO DAILY 28 Days Qty: 28 0RF docusate sodium [Colace] 100 mg capsule 100 mg PO DAILY Qty: 14 0RF polyethylene glycol 3350 [Miralax] 17 gram/dose powder 17 g PO DAILY Qty: 238 0RF Date of admission: 05/02/24 07:46 Primary Care Provider: Dong,Chavez Nelson Admitting Provider: Jacquelyn Dennison Attending physician on admission: Jacquelyn Dennison Condition: Improved Quality VTE Prophylaxis VTE prophylaxis: mechanical ordered (SCDs) Hospitalist MIPS Heart Failure (Exclusion) Patient has history of Heart Transplant or Left Ventricular Assistive Device?: No IF YES, STOP HERE Heart Failure (Qualifier) Patient has current or prior documentation of LVEF less than or equal to 40%, or mod/servere depressed LVSF?: No IF NO, STOP HERE
--- OUTSIDE RECORDS SUMMARY | 2024-05-04 15:02 | XMS_ITS | Clinical Summary ---
Author Organization [facility] Address [address] [place] [address]. 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 [employer] Name Role Phone Unavailable Primary Care Provider Unavailabl e Social History Tobacco Use Types Packs/Day Years Used Date Smoking Tobacco: Never Assessed Comments Unknown Sex and Gender Information Value Date Recorded Sex Assigned at Not on file Legal Sex Female 7:57 PM CDT Gender Identity Not on file Sexual Orientation Not on file Plan of Treatment Health Maintenance Due Date Last Done Comments Hepatitis C 1963 DTaP, Tdap and Td Vaccines ( 1 - Tdap) 11/24/1963 Zoster Vaccines (1 of 2) 1994 Dexa Scan (General) 2009 Pneumococcal Vaccine: 65+ Ye ars (1 of 1 - PCV) 2009 RSV Immunization or 60+ Years (1 - 1-dose 75+ series) 11/24/2019 COVID-19 Vaccine (2023-2 5 season) 2023 Influenza Adult (#1) 2024 Meningococcal Vaccine Aged Out No melanie john eligible based on patient's age to complete this topic RSV Immunizations Under 20 Months Aged Out No longer eligible based on patient's age to complete this topic
--- OUTSIDE RECORDS SUMMARY | 2024-05-04 15:02 | XMS_ITS | Continuity of Care Document ---
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 [address] , [address], [place], [address], [place]. tel:[phone] Family History Family Member Type Diagnosis Age At Onset No Information Payers Payer name Insurance type Covered libertarian ID Authoriza tion(s) No Information Social History Type Description Quantity Date Captured Comments Sex Female Smoking Status No Information Chief Complaint And Reason For Visit No Information Reason For Referral Reason For Referral No Information History Of Present Illness Encounter Date Complaint History Of Prese nt Illness No Information Functional Status Date Functional Assessmen t No Information Instructions Date Instruction Additional Infor mation No Information Assessments Type Assessment Date No Information Patient Care Teams Name Effective Dates (start - stop) Status Members No Information
--- OUTSIDE RECORDS SUMMARY | 2024-05-04 15:02 | XMS_ITS | CONTINUITY OF CARE DOCUMENT ---
Author Name joe, qisavannaser Address Unknown Organization [facility] Address [address] [place] [address] Phone [phone] Care Team Providers Care Piledriver Carpenter Name Role Phone Yobany Wilhelm MD Unavailable Chavez Umana MD Unavailable Chavez Umana MD Unavailable PROBLEMS Condition Status Date Provider Notes Dizziness active Yobany Wilhelm MD Fatigue active Yobany Wilhelm MD CHEST PAIN-ischemia on stres s test, nl cors on cath 09/28 active Yobany Wilhelm MD Hyperlipidemia active Yobany Wilhelm MD Family History of Hypertension: active ? Niraj Wilhelm MD ENCOUNTERS Date Type Provider Location Encounter Diagnosis - In-person encounter Office Visit Yobany Wilhelm MD [place] [facility] - In-person encounter Office Visit Yobany Wilhelm MD [place] [facility] Dizziness - In-person encounter Office Visit Yobany Wilhelm MD [place] [facility] - In-person encounter Office Visit Yobany Wilhelm MD [place] [facility] - In-person encounter Office Visit Yobany Wilhelm MD [place] [facility] CHEST PAIN-ischemia on stress test, nl cors on cath 09/28 - In-person encounter Office Visit Yobany Wilhelm MD [facility] Office Family History of Hypertension:Hyper lipidemiaCHEST PAIN-ischemia on stress test, nl cors on cath 09/28Fatigue VITAL SIGNS Date Observation Value Provider Body Mass Index (Ratio) 22.31 kg/m2 Niraj Wilhelm MD blood pressure, diastolic 77 mm[Hg] Nadya reddy Alex blood pressure, systolic 131 mm[Hg] Devorah allegra Johnson oxygen saturation, oximetry 97 % Leslie Alex respiratory rate E&M 16 /min Leslie Alex pulse rate 80 /min Leslieemma Johnson weight E&M 130 [lb_av] Leslieemma Johnson height E&M 64 [in_i] Leslie Jhonson Body Mass Index (Ratio) 22.48 kg/m2 Niraj Wilhelm MD blood pressure, diastolic 94 mm[Hg] Mi yara Roosevelt blood pressure, systolic 138 mm[Hg] [facility] radhamarlin Albert oxygen saturation, oximetry 100 % Josette Albert pulse rate 67 /min Josette kerns weight E&M 131 [lb_av] Josette kerns respiratory rate E&M 16 /min Radha Albert blood pressure, cuff size large Violeta yara [place] height E&M 64 [in_i] Josette kerns Body Mass Index (Ratio) 24.37 kg/m2 Niraj Wilhelm MD pulse rate 69 /min Bing Block blood pressure, diastolic 60 mm[Hg] Br ittany Block blood pressure, systolic 118 mm[Hg] Paula jose alberto Block oxygen saturation, oximetry 98 % Bing Block weight E&M 142 [lb_av] Bing Block respiratory rate E&M 16 /min Brittan y Block height E&M 64 [in_i] Bing Cheney Body Mass Index (Ratio) 24.71 kg/m2 Niraj Wilhelm MD blood pressure, diastolic 80 mm[Hg] Ki bina [place] blood pressure, systolic 128 mm[Hg] Kristal rivera [place] oxygen saturation, oximetry 98 % [facility] respiratory rate E&M 16 /min [facility] pulse rate 70 /min [facility] weight E&M 144 [lb_av] [facility] height E&M 64 [in_i] [facility] Body Mass Index (Ratio) 24.61 kg/m2 Niraj Wilhelm MD blood pressure, diastolic 70 mm[Hg] Rh nahomyjoya Moe blood pressure, systolic 120 mm[Hg] Rho lora Moe blood pressure, cuff size regular Jason Moe respiratory rate E&M 16 /min Maureen Moe pulse rate 73 /min Maureen Moe oxygen saturation, oximetry 98 % Maureen Moe blood pressure, resting No Iftikhar Edmonds weight E&M 143.4 [lb_av] Maureen Moe height E&M 64 [in_i] Maureen Moe ALLERGIES Allergy Name Onset Date Reaction Criticality Status PENICILLIN High Criticality active RESULTS Date Observation Value Provider Reference Range Interpretation Location 3 prothrombin time (patient) 9.9 s [facility] 9.0-11.5 Normal 3 international normalized ratio (INR) 1.0 [facility] Normal 3 basophils as percent of blood leukocytes 0.8 % [facility] Normal 3 eosinophils as percent of blood leukocytes 4.7 % [facility] Normal 3 monocyte count, blood 7.7 % [facility] Normal 3 lymphocyte count, blood 30.4 % [facility] Normal 3 neutrophils as percent of blood leukocytes 56.4 % [facility] Normal 3 basophils, absolute, manual 39 cells/mcL [facility] 0-200 Normal 3 eosinophils, absolute, manual 230 cells/mcL [facility] 15-500 Normal 3 monocytes, absolute, manual 377 cells/mcL [facility] 200-950 Normal 3 lymphocytes, absolute 1490 CELLS/UL [facility] 850-3900 Normal 3 Absolute Neutrophil count 2764 cells/mcL [facility] 5053-3351 Normal 3 mean platelet volume 10.0 fL [facility] 7.5-12.5 Normal 3 platelet count 223 THOUSAND/U L [facility] 140-400 Normal 3 red blood cell distribution width 13.3 % [facility] 11.0-15.0 Normal 3 mean corpuscular hemoglobin concentration, RBC 33.2 G/DL [facility] 32.0-36.0 Normal 3 mean corpuscular hemoglobin, RBC 29.2 pg [facility] 27.0-33.0 Normal 3 mean corpuscular volume, RBC 88.1 fL [facility] 80.0-100.0 Normal 3 hematocrit, blood 40.1 % [facility] 35.0-45.0 Normal 3 hemoglobin electrophoresis, blood 13.3 [facility] 11.7-15.5 Normal 3 erythrocyte (RBC) count 4.55 MILLION/UL [facility] 3.80-5.10 Normal 3 leukocyte (white blood cells) count, blood 4.9 THOUSAND/U L [facility] 3.8-10.8 Normal 3 calcium, serum 8.8 mg/dL [facility] 8.6-10.4 Normal 3 carbon dioxide, venous blood 27 mmol/L [facility] 20-32 Normal 3 chloride, serum 107 mmol/L [facility] 98-110 Normal 3 potassium, serum 4.5 mmol/L [facility] 3.5-5.3 Normal 3 sodium, serum 140 mmol/L [facility] 135-146 Normal 3 urea nitrogen/creatinin e ratio, serum 43 (calc) [facility] 6-22 High 3 Estimated Glomerular Filtration Rate (calc) 93 mL/min/{1. 73_m2} [facility] > OR = 60 Normal 3 creatinine, serum 0.74 mg/dL [facility] 0.60-0.93 Normal 3 urea nitrogen, blood 32 mg/dL [facility] 7-25 High 3 blood glucose, random 89 mg/dL [facility] 65-99 Normal 3 cholesterol, non-HDL, total 145 MG/DL (CALC) [facility] <130 High 3 cholesterol/HDL ratio, serum, percent 2.9 (calc) [facility] <5.0 Normal 3 LDL cholesterol, serum 126 MG/DL (CALC) [facility] High 3 triglyceride, serum, fasting 86 mg/dL [facility] <150 Normal 3 HDL cholesterol, serum 78 mg/dL [facility] >50 Normal 3 cholesterol, serum 223 mg/dL [facility] <200 High HISTORY OF MEDICATION USE Medication Status Instructions Dates Provider Indications Com ments nitroglycerin 0.4 mg tablet, sublingual active 1 tablet under tongue as directed as needed 1 tablet under tongue for chest pain. May repeat every 5 minutes if still having chest pain- to max of 3 tablets per episode.If no relief after 3rd dose, go to ER 6 [place] meclizine 12.5 mg tablet active Take 1 tablet by mouth once a day as needed for dizziness 6 [place] Ranexa 500 mg tablet extended release 12 hr completed 1 tablet by mouth twice a day 6 - 4 Yobany Wilhelm MD Wal-Profen 200 mg tablet completed as needed - 4 Yobany Wilhelm MD atorvastatin 20 mg tablet completed 1 tablet once a day - 4 Yobany Wilhelm MD Adult Aspirin Regimen 81 mg tablet,delayed release (DR/EC) active 1 tablet once a day 1 Maureen Moe SOCIAL HISTORY Date Observation Value Provider social history reviewed E&M revi ewed - no changes required [place] social history reviewed E&M revi ewed - no changes required Yobany Wilhelm MD social history E&M S moking History: P major has never smoked. Yobany Wilhelm MD social history reviewed E&M revi ewed - no changes required Yobany Wilhelm MD smoking status Never smoker Josette Lenny and social history E&M S moking History: P major has never smoked. Yobany Wilhelm MD social history reviewed E&M revi ewed - no changes required Yobany Wilhelm MD smoking status Never smoker Bing Cooper hailee social history reviewed E&M revi ewed - no changes required Yobany Wilhelm MD social history E&M S moking History: Manuela gonsalves has never smoked. Yobany Wilhelm MD number of grandchildren Yobany Elam keenan Casey smoking status Never smoker Neva moses social history reviewed E&M revi ewed - no changes required Yobany Wilhelm MD smoking status Never smoker Maureen Moe FAMILY HISTORY Family Member Condition Mother Family History Unkno wn Father Family History of Co ngestive Heart Failure: Father Family History of Hy pertension: INSURANCE PROVIDERS Payer name Policy type / Coverage type [place] red constitution party ID [facility] MEDICARE COMPLETE HMO Other [id number] ADVANCE DIRECTIVES Name Date DISCUSSED - NO DECISION MADE TREATMENT PLAN Date Name Performer [id number],[place] [id number],[place] [id number],[place] [id number],[place] [id number],WYobany MD [id number],S, Yobany Wilhelm MD [id number],W, Yobany Wilhelm MD Cardiology [place] [facility] Cardiology [place] [facility] Cardiology [place] Cardiology [place] Cardiology Yobany Wilhelm MD Cardiology Yobany Wilhelm MD Cardiology Yobany Wilhelm MD Cardiology Yobany Wilhelm MD Cardiology Yobany Wilhelm MD Cardiology Yobany Wilhelm MD Cardiology Yobany Wilhelm MD Cardiology Yobany Wilhelm MD Cardiology Yobany Wilhelm MD Cardiology Yobany Wilhelm MD Cardiology Yobany Wilhelm MD Cardiology Yobany Wilhelm MD Cardiology Yobany Wilhelm MD Date Name RPM (remote patient monitoring) Complete Echo Stress Exercise Card iolite PROTHROMBIN TIME WIT H INR LIPID PANEL CBC (INCLUDES DIFF/P LT) BASIC METABOLIC PANE L W/EGFR HISTORY OF PROCEDURES Procedure Date Procedure Name Provider Procedure Notes S tatus EKG Yobany Wilhelm MD completed EKG Yobany Wilhelm MD completed
--- OUTSIDE RECORDS SUMMARY | 2024-05-04 15:05 | XMS_ITS | CONTINUITY OF CARE DOCUMENT ---
Author Name joe, qisavannaser Address Unknown Organization [facility] Address [address] [place] [address] Phone [phone] Care Team Providers Care Horses Or Mules Teamster Name Role Phone Yobany Wilhelm MD Unavailable Chavez Umana MD Unavailable [phone] Chavez Umana MD Unavailable [phone] PROBLEMS Condition Status Date Provider Notes Family History of Hypertension: active ? Niraj Wilhelm MD Hyperlipidemia active Yobany Wilhelm MD CHEST PAIN-ischemia on stres s test, nl cors on cath 09/28 active Yobany Wilhelm MD Fatigue active Yobany Wilhelm MD Dizziness active Yobany Wilhelm MD ENCOUNTERS Date Type Provider Location Encounter Diagnosis - In-person encounter Office Visit Yobany Wilhelm MD [place] - In-person encounter Office Visit Yobany Wilhelm MD [facility] Dizziness - In-person encounter Office Visit Yobany Wilhelm MD [facility] - In-person encounter Office Visit Yobany Wilhelm MD [facility] - In-person encounter Office Visit Yobany Wilhelm MD [facility] CHEST PAIN-ischemia on stress test, nl cors on cath 09/28 - In-person encounter Office Visit Yobany Wilhelm MD [facility] Office Family History of Hypertension:Hyper lipidemiaCHEST PAIN-ischemia [...] Leslieemma Johnson height E&M 64 [in_i] Leslie Johnson Body Mass Index (Ratio) 22.48 kg/m2 Niraj Wilhelm MD blood pressure, diastolic 94 mm[Hg] Mi yara [place] blood pressure, systolic 138 mm[Hg] [facility] radhamarlin Albert oxygen saturation, oximetry 100 % Josette Albert pulse rate 67 /min Josette kerns weight E&M 131 [lb_av] Josette kerns respiratory rate E&M 16 /min Radha Albert blood pressure, cuff size large Violeta yara [place] height E&M 64 [in_i] Josette kerns Body [...] blood pressure, diastolic 80 mm[Hg] Ki bina [place] blood pressure, systolic 128 mm[Hg] Kristal rivera [place] oxygen saturation, oximetry 98 % [facility] respiratory rate E&M 16 /min [facility] pulse rate 70 /min [facility] weight E&M 144 [lb_av] [facility] height E&M 64 [in_i] [facility] Body Mass Index (Ratio) 24.61 kg/m2 Niraj [...] 3 Absolute Neutrophil count 2764 cells/mcL [facility] 1314-3351 Normal 3 mean platelet volume 10.0 fL [...] Payer name Policy type / Coverage type [place] red alliance party ID [facility] MEDICARE COMPLETE HMO Other [id number] ADVANCE DIRECTIVES Name Date DISCUSSED - NO DECISION MADE TREATMENT PLAN Date Name Performer [id number],[place] [id number],[place] [id number],[place] [id number],[place] [id number],WYobany MD [id number],S, Yobany Wilhelm MD [id number],W, Yobany Wilhelm MD Cardiology [facility] [...]
--- OUTSIDE RECORDS SUMMARY | 2024-05-04 15:05 | XMS_ITS | Data Portability ---
Author Organization [facility] Main Office Address [address] [place] [address] Assessment No assessment recorded. Plan of Treatment Reminders Order Date Submit Date Provider Last Modified By Organization Details Last Modified Time Details Appointments None record ed. Lab None record ed. Referral None record ed. Procedures None record ed. Surgeries None record ed. Imaging None record ed. Medication Orders None record ed. Patient TargetsNo targets recorded. Patient InstructionsNo instructions recorded. Reason for Referral None Reported. Results Created Date Observation Date Name Description Value Unit Range Abnormal Flag Note LastModifiedBy Organization Detail LastModifiedTime 08/10/19 21 08/08/2020 CT, head, w/o contr ast No observ ation record ed. [id number] Not Available 06/10/2022 13:33:11 08/10/19 21 08/08/2020 CT, spine , w/o contr ast No observ ation record ed. [id number] Not Available 06/10/2022 13:33:11 01/29/20 22 01/28/2022 , [facility] ardio gram No observ ation record ed. [id number] [facility] [address], [place], [address], 06/10/2022 13:33:11 Result Notes None recorded. Problems Name Problem SNOMED Code Status Onset Date Resolution Date Notes Provider Name and Address Organization Details Recorded Time Wrist joint pain 090835734 Completed Not Available [facility] 3 13:30:22 Osteoarthr itis of knee 280904496 Active Not Available [facility] 3 13:30:22 Menopausal and postmenopa usal disorders 908360696 Active 2018 Not Available [facility] 3 13:30:22 Chest pain 01778201 Active 2018 Not Available [facility] 13:30:23 Current tear of medial cartilage AND/OR meniscus of knee Active Not Available [facility] 13:30:23 Hyperlipid emia 17842871 Active 2018 Not Available [facility] 13:30:23 Problem Notes None recorded. Procedures Surgical History Date Name Laterality Status Provider Name and Address Organization Details Recorded Time 08/31/19 Most Recent Bone Density completed Not Available [facility] 06/10/2022 13:29:43 Carpal tunnel completed Not Available [facility] 06/10/2022 13:29:44 Hysterectomy completed Not Available [facility] 06/10/2022 13:29:44 Knee Surgery completed Not Available [facility] 06/10/2022 13:29:44 Cholecystectomy completed Not Available [facility] 06/10/2022 13:29:44 open meniscectomy completed Not Available [facility] 06/10/2022 13:29:44 Tonsillectomy completed Not Available [facility] 06/10/2022 13:29:44 Imaging Results Imaging Date Name Status LastModified by Organization Details LastModified Time 08/08/2020 CT, head, w/o contrast completed [id number] Information not available 06/10/2022 13:33:11 08/08/2020 CT, spine, w/o contrast completed [id number] Information not available 06/10/2022 13:33:11 01/28/2022 US, echocardiogram completed [id number] [facility] [address], [place], [address], 06/10/2022 13:33:11 Procedure Notes None recorded. Medical Equipment None Reported. Allergies Allergen ID Allergen Name Allergen Category Reaction Reaction Severity Criticality Documentation Date Start Date Code Code System Note Provider Name and Address Organization Details Recorded Time 79158 Product containin g penicilli n and antibioti c (product) medicatio n swelling Not available Not available 06/10/2022 59949 05 SNOMED As a child Not Available [facility] 13:33:07 Medications Name Sig Start Date Stop Date Status Note LastModified by Organization Details LastModified Time atorvastatin 20 mg tablet TK 1 T PO QD 08/15 completed Not Available Not Available Not Available alendronate 70 mg tablet Take 1 tablet every week by oral route. 08/15 completed Not Available Not Available Not Available nitroglycerin 0.4 mg sublingual tablet 08/15 completed Not Available Not Available Not Available ranolazine ER 500 mg tablet,extend ed release,12 hr TK 1 T PO BID 08/15 completed Not Available Not Available Not Available Vitals Date Recorded Body mass index (BMI) Body height Oxygen saturation Oxygen saturation in Arterial blood by Pulse oximetry Heart rate Respiratory rate Body temperature Body weight Systolic blood pressure Diastolic blood pressure Provider Name and Address Organization Details Last Updated DateTime 1 22.2 kg/m2 170.18 cm 97 % 97 % 88 /min 16 /min 98 [degF] 32730.1 2 g 118 mm[Hg] 68 mm[Hg] Not Available [facility] 3 13:30:08 Date Recorded Body mass index (BMI) Body height Oxygen saturation Oxygen saturation in Arterial blood by Pulse oximetry Heart rate Body temperature Body weight Systolic blood pressure Diastolic blood pressure Provider Name and Address Organization Details Last Updated DateTime 1 21.9 kg/m2 170.18 cm 98 % 98 % 85 /min 97.4 [degF] 39702.9 3 g 110 mm[Hg] 64 mm[Hg] Not Available [facility] 3 13:30:08 Social History Question Answer Notes LastModified by Organizat ion Details LastModified Time Tobacco Smoking Status Never Smoker Not Available [facility] 06/10/2022 13:29:35 Do You Have An Advance Directive? No [id number] Information not available 06/10/2022 What Is Your Level Of Alcohol Consumption? None [id number] Information not available 06/10/2022 Are You Blind Or Do You Have Difficulty Seeing? Yes Cataracts [id number] Information not available 06/10/2022 What Is Your Level Of Caffeine Consumption? Moderate [id number].[id number] 1948 Information not available 06/10/2022 How Much Tobacco Do You Chew? None [id number].[id number] 3230 Information not available 06/10/2022 Are You Deaf Or Do You Have Serious Difficulty Hearing? No [id number].[id number] 5160 Information not available 06/10/2022 What Type Of Diet Are You Following? REGULAR [id number].596911 5101 Information not available 06/10/2022 Which Illicit Or Recreational Drugs Have You Used? 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 10/16/2020 [id number] Information not available 06/10/2022 Do You Use Sunscreen Routinely? Yes [id number].[id number] 9671 Information not available 06/10/2022 Sex: Female Functional Status Question Answer Note LastModified by [employer] Details LastModified Time Do you have difficulty walking or climbing stairs? No [id number] 26 Information not available 06/10/2022 Do you have difficulty doing errands alone? No [id number].[id number] 26 Information not available 06/10/2022 Do you have difficulty dressing or bathing? No [id number].[id number] 26 Information not available 06/10/2022 What is your exercise level? Moderate [id number].[id number] 26 Information not available 06/10/2022 Mental Status Question Answer Note LastModified by Organizat ion Details LastModified Time Do you have difficulty concentrating, remembering or making decisions? No [id number] 6 Information not available 06/10/2022 Family History Relationship Description Onset Age of this Age Resolved Age Notes LastModified by Organization Details LastModified Time Father Congestive heart failure 91 [id number] Not available 06/10/2022 13:29:44 Mother Heart valve disorder [id number] Not available 06/10/2022 13:29:45 Sister Pancreatitis 61 MIGRATION.0 30 [id number] Not available 06/10/2022 13:29:45 Sister Diabetes mellitus 61 [id number] Not available 06/10/2022 13:29:45 Sister Hypertensive disorder 61 [id number].119 [id number] Not available 06/10/2022 13:29:45 Sister Hyperlipidem ia 61 [id number].200 [id number] Not available 06/10/2022 13:29:45 Medical History No medical history recorded. Gynecological History Statement/Question Response Date of Last Pap Date of Last Mammogram 08/30/2018 Date of Last Colonoscopy Most Recent Bone Density 08/30/2018 Obstetrics History GPAL:G 0 P 0 0 0 0 Past Encounters Encounter ID Performer Location Encounter Start Date Encounter Closed Date Diagnosis/Indication Diagnosis SNOMED-CT Code Diagnosis ICD10 Code Diagnosis Note [id number] [facility] Internal Med [facility] [address] [facility] [place] [address] 08/15/2020 00:00:00 08/15/2020 11:02:41 [id number] [facility] Med [facility] [address] [facility] [place] [address] 10/16/2020 00:00:00 10/16/2020 15:31:10 Health Concerns Section Related Observation LastModified by Organization Detai ls LastModified Time None Recorded Concern Status LastModified by Organization Details LastModified Time None Recorded Advance Directives Directive N: Payers None recorded. OBGyn Episode No OBEpisode recorded.
--- OUTSIDE RECORDS SUMMARY | 2024-05-04 15:05 | XMS_ITS | Continuity of Care Document ---
Author Organization [facility] Address [address] [place] [address] Phone Care Team Providers Care [place] [employer] Group Leader Name Role Phone Francesco Jefferson Unavailable Unavailable Advance Directives Directive Yes / No Effective Date File Name No Information Encounters Encounter Description Practice Location Reason(s) For Visit Diagnoses Date Provider Providers Copied on Encounter [facility], [address], [place], [place], [id number], [place] tel:[phone] [facility] No Information 7-200 0 Doisy Edward. [address], [place], [address], [place]. tel:[phone] Family History Family Member Type Diagnosis Age At Onset No Information Payers Payer name Insurance type Covered democrat ID Authoriza tion(s) No Information Social History [...]
--- OUTSIDE RECORDS SUMMARY | 2024-05-04 16:09 | XMS_ITS | Continuity of Care Document ---
Author Organization [facility] Address [address] [place] [address] Phone Care Team Providers Care Customer Training Specialist Name Role Phone Francesco Jefferson Unavailable Unavailable Advance Directives Directive Yes / No Effective Date File Name No Information Encounters Encounter Description Practice Location Reason(s) For Visit Diagnoses Date Provider Providers Copied on Encounter Formerly [facility], [address], [place], [place], [id number], [place] tel:[phone] [facility] No Information 7-[address] Doisy Edward. [address] , [address], [place], [address], [place]. tel:[phone] Family History Family Member Type Diagnosis Age [...]
--- OUTSIDE RECORDS SUMMARY | 2024-05-04 16:09 | XMS_ITS | CONTINUITY OF CARE DOCUMENT ---
Author Name joe, qisavannaser Address Unknown Organization [facility] Address [address] [place] [address] Phone [phone] Care Team Providers Care Adventure Challenge Instructor Name Role Phone Yobany Wilhelm MD Unavailable Chavez Umana MD Unavailable Chavez Umana MD Unavailable [phone] PROBLEMS Condition Status Date Provider Notes Family History of Hypertension: active ? Niraj Wilhelm MD Hyperlipidemia active Yobany Wilhelm MD CHEST PAIN-ischemia on stres s test, nl cors on cath 09/28 active Yobany Wilhelm MD Fatigue active Yobany Wilhelm MD Dizziness active Yobany Wilhelm MD ENCOUNTERS Date Type Provider Location Encounter Diagnosis - In-person encounter Office Visit Yobany Wilhelm MD [place] [facility] - In-person encounter Office Visit Yobany Wilhelm MD [place] [facility] Dizziness - In-person encounter Office Visit Yobany iWlhelm MD [place] [facility] - In-person encounter Office Visit Yobany Wilhelm MD [place] [facility] - In-person encounter Office Visit Yobany Wilhelm MD [place] [facility] CHEST PAIN-ischemia on stress test, nl cors on cath 09/28 - In-person encounter Office Visit Yobany Wilhelm MD [facility] Family History of Hypertension:Hyper lipidemiaCHEST PAIN-ischemia [...] yara [place] blood pressure, systolic 138 mm[Hg] [facility] radhamarlin Albert oxygen saturation, oximetry 100 % [...] blood pressure, diastolic 80 mm[Hg] Ki bina [place] blood pressure, systolic 128 mm[Hg] Kristal rivera [place] oxygen saturation, oximetry 98 % [facility] respiratory rate E&M 16 /min [facility] pulse rate 70 /min [facility] weight E&M 144 [lb_av] [facility] height E&M 64 [in_i] [facility] Body Mass Index (Ratio) 24.61 kg/m2 [...] 3 Absolute Neutrophil count 2764 cells/mcL [employer] [id number] Normal 3 mean platelet volume 10.0 fL [...] Payer name Policy type / Coverage type [place] red libertarian ID [facility] MEDICARE COMPLETE HMO Other [id number] ADVANCE DIRECTIVES Name Date DISCUSSED - NO DECISION MADE TREATMENT PLAN Date Name Performer [id number],[place] i [id number],[place] i [id number],[place] i [id number],[place] i [id number],WYobany MD [id number],S, Yobany Wilhelm MD [id number],W, Yobany Wilhelm MD Cardiology [facility] [...]
--- OUTSIDE RECORDS SUMMARY | 2024-05-04 16:09 | XMS_ITS | Clinical Summary ---
Author Organization [facility] Address [address] [place] [address]. [place], [place] [id number] [place] [id number] Care Team Providers Care Logistics Officer Name Role Phone Unavailable Primary Care Provider [...]
--- OUTSIDE RECORDS SUMMARY | 2024-05-04 16:12 | XMS_ITS | Continuity of Care Document ---
Author Organization [facility] Address [address] [place] [address] Phone Care Team Providers Care Arch Support Maker Name Role Phone Francesco Jefferson Unavailable Unavailable Advance Directives Directive Yes / No Effective Date File Name No Information Encounters Encounter Description Practice Location Reason(s) For Visit Diagnoses Date Provider Providers Copied on Encounter [facility], [address], [place], [place], [id number], [place] tel:[phone] [facility] No Information 7-[address] 0 Doisy Edward. [address] , [address], [place], [address], [place]. tel:[phone] Family History Family Member Type Diagnosis Age At Onset No Information Payers Payer name Insurance type Covered constitution party ID Authoriza tion(s) No Information Social History [...]
--- OUTSIDE RECORDS SUMMARY | 2024-05-04 16:12 | XMS_ITS | CONTINUITY OF CARE DOCUMENT ---
Author Name joe, qisavannaser Address Unknown Organization [facility] Address [address] [place] [address] Phone [phone] Care Team Providers Care Contact Manager Name Role Phone Yobany Wilhelm MD Unavailable [phone] Chavez Umana MD Unavailable [phone] Chavez Umana MD Unavailable PROBLEMS Condition Status Date Provider Notes Family History of Hypertension: active ? Niraj Wilhelm MD Hyperlipidemia active Yobany Wilhelm MD CHEST PAIN-ischemia on stres s test, nl cors on cath 09/28 active Yobany Wilhelm MD Fatigue active Yobany Wilhelm MD Dizziness active Yobany Wilhelm MD ENCOUNTERS Date Type Provider Location Encounter Diagnosis - In-person encounter Office Visit Yobany Wilhelm MD [place] [facility] - In-person encounter Office Visit Yobany Wilhelm MD [place] Dizziness - In-person encounter Office Visit Yobany Wilhelm MD [place] - In-person encounter Office Visit Yobany Wilhelm MD [place] [facility] - In-person encounter Office Visit Yobany Wilhelm MD [place] [facility] CHEST PAIN-ischemia on stress test, nl cors on cath 09/28 - In-person encounter Office Visit Yobany Wilhelm MD [facility] Family History of Hypertension:Hyper lipidemiaCHEST [...] yara [place] blood pressure, systolic 138 mm[Hg] [facility] radhamarlin Albert oxygen saturation, oximetry [...] blood pressure, diastolic 80 mm[Hg] Ki bina [place] blood pressure, systolic 128 mm[Hg] Kristal rivera [place] oxygen saturation, oximetry 98 % [facility] respiratory rate E&M 16 /min [facility] pulse rate 70 /min [facility] weight E&M 144 [lb_av] [facility] height E&M 64 [in_i] [facility] Body Mass Index (Ratio) 24.61 kg/m2 [...] 3 Absolute Neutrophil count 2764 cells/mcL [employer] [id number] Normal 3 mean platelet volume 10.0 fL [...] Payer name Policy type / Coverage type [place] red green party ID [facility] MEDICARE COMPLETE HMO Other [id number] ADVANCE DIRECTIVES Name Date DISCUSSED - NO DECISION MADE TREATMENT PLAN Date Name Performer [id number],SOchoa i [id number],[place]cho[place] i [id number],[place]cho[place] i [id number],[place]cho[place] i [id number],WYobany MD [id number],S, Yobany Wilhelm MD [id number],W, Yobany Wilhelm MD Cardiology [facility] [...]
== END 2024-05-04 14:30 | disposition home or self-care (01) ==
LOC: ANHED 05-02 00:21 → ANH3MED 05-02 15:40
PROVIDERS: Nurse Practitioner Adult Health; Admitting Provider Internal Medicine; Emergency Provider Emergency Medicine; PCP Internal Medicine; Visit Provider Hospitalist
DX: S42.292A Other displaced fracture of upper end of left humerus, initial encounter for closed fracture (principal); W01.0XXA Fall on same level from slipping, tripping and stumbling without subsequent striking against object, initial encounter; M54.2 Cervicalgia; M25.532 Pain in left wrist; M25.562 Pain in left knee; E78.5 Hyperlipidemia, unspecified; Z66 Do not resuscitate; Z98.890 Other specified postprocedural states
CPT/HCPCS: 36415; 70450; 72125; 73030; 73100; 80048; 84484; 85027; 93005; 96374; 96375; 96376; 97161; 97165; 97535; 99285; A9270; G0378; J1885; J2270; J2405